=== PATIENT | female | born 1960 | race Caucasian/White ===

== ENCOUNTER → 2016-05-03 | Outpatient (CLI) | payer BC ==
[~2016-05-03] MED LIST: CEPH500C2 PO; ZLF/50 PO
== END | disposition home or self-care (01) ==
LOC: C.PAPS 11:45
PROVIDERS: ATTEND Obstetrics & Gynecology
DX: Z01.419 Encounter for gynecological examination (general) (routine) without abnormal findings (principal)

== ENCOUNTER 2016-08-12 19:31 | Emergency (ER) | payer BC ==
[~2016-08-12] VITALS: Ht 162.6 cm; Wt 77.7 kg
[2016-08-12 19:47] VITALS: TEMP 37.2; Ht 162.6 cm; Wt 77.7 kg
[2016-08-12 20:28] LABS: BASO % 0.2 %; BASO ABS # 0.01 K/uL (0-0.2); COMPLETE YES; EOS % 0.3 %; HEMATOCRIT 42.5 % (37-47); IG% 0.2 %; LYMPH % 19.8 %; LYMPH ABS # 1.31 K/uL (1.2-3.4); MEAN CELL VOLUME 92.4 fL (80-100); MEAN CORPUSCULAR HEMOGLOBIN 30.2 pg (25-34); MEAN CORPUSCULAR HGB CONC 32.7 g/dl (32-36); MEAN PLATELET VOLUME 9.5 fL (7.4-10.4); MONO % 12.1 %; NEUT % 67.4 %; PLATELET COUNT 196 K/uL (130-400); WHITE BLOOD COUNT 6.63 K/uL (4.8-10.8)
[2016-08-12] MEDS ORDERED: ONDANSETRON INJ 2 MG/ML 2 ML VIAL IV STA (20:34)
[2016-08-12 20:35] LABS: BUN/CREATININE RATIO 11.4 (10-20); CALCIUM 8.9 mg/dl (8.5-10.1); CREATININE 1.1 mg/dl (0.60-1.20); POTASSIUM 3.2 mmol/L (3.5-5.1)
[2016-08-12] MEDS ORDERED: ZLF/50 PO (20:37)
[2016-08-12] MEDS ORDERED: CEFTRIAXONE SOD INJ 1 GM ADDVIAL IV STA (20:50)
[2016-08-12] MEDS ORDERED: ACETAMINOPHEN 500 MG TAB PO STA (21:44)
--- NOTE | 2016-08-12 21:46 | DIAGNOSTIC IMAGING REPORT ---
LEFT LOWER EXTREMITY VENOUS DOPPLER CLINICAL HISTORY: Left popliteal lesion. Erythema and tenderness of left popliteal fossa. COMPARISON STUDY: No previous studies for comparison. TECHNIQUE: Sonography of the deep venous system of the left lower extremity was performed. Compression and augmentation were evaluated. FINDINGS: The left common femoral, superficial femoral and popliteal veins were compressible. Augmentation was normal. Flow was shown within the deep calf vessels. No fluid collection, mass or other sonographic abnormality was identified within the left popliteal fossa. IMPRESSION: 1. No evidence of deep venous thrombus within the left lower extremity. 2. No sonographic abnormality within the left popliteal fossa. Electronically signed by: Miguel Plunkett M.D. 08/12/2016 9:45 PM Dictated Date/Time: 08/12/2016 9:44 PM
--- NOTE | 2016-08-12 21:47 | EMERGENCY ROOM VISIT NOTE ---
History First contact with patient: 20:04 Chief Complaint: ILLNESS Stated Complaint: [id number]-OPEN WOUND ON BACK OF KNEE History of Present Illness The patient is a 55 year old female who presents to the Emergency Room with complaints of left leg pain. The patient first noticed some redness and swelling over the left popliteal fossa on Friday and it continued to progress over the last 2 days. The patient also states that she documented a fever at home today and currently has a headache and nausea. The patient does not remember any trauma or irritation to the area or any other cause of an infection. She states she is also having pain and numbness over he left calf. She states she also has a history of chronic fatigue. Review of Systems See HPI for pertinent positives and negatives. A total of ten systems were reviewed and were otherwise negative. Past Medical/Surgical History Medical Problems: (1) Migraine Social History Smoking Status: Never Smoker Current/Historical Medications Scheduled Cephalexin Monohydrate (Keflex), 500 MG PO QID Sertraline HCl (Sertraline HCl), 50 MG PO DAILY Allergies Coded Allergies: No Known Allergies (Verified , 12/06/14) Physical Exam Vital Signs Date Time Temp Pulse Resp B/P (MAP) Pulse Ox O2 Delivery O2 Flow Rate FiO2 08/12/16 22:10 99 18 111/67 96 08/12/16 21:41 99 18 111/67 96 Room Air 08/12/16 19:47 37.2 91 20 110/58 97 Room Air Physical Exam GENERAL: Awake, alert, well-appearing, in no distress HENT: Normocephalic, atraumatic. EYES: Normal conjunctiva. Sclera non-icteric. NECK: Supple. No nuchal rigidity. RESPIRATORY: Clear to auscultation. CARDIAC: Regular rate, normal rhythm. Extremities warm and well perfused. Pulses equal. ABDOMEN: Soft, non-distended. No tenderness to palpation. RECTAL: Deferred. MUSCULOSKELETAL: Tenderness with flexion and extension of left knee. Full ROM. No tenderness with plantar flexion. Tenderness to palpation over the left calf. LOWER EXTREMITIES: Calves are equal size bilaterally and non-tender. No edema. No discoloration. NEURO: Normal sensorium. SKIN: Large area of erythema over the left popliteal area. Tender to palpation over the fold of the left popliteal fossa Medical Decision & Procedures Laboratory Results 08/12/16 20:05 Red Blood Count 4.60, Mean Corpuscular Volume 92.4, Mean Corpuscular Hemoglobin 30.2, Mean Corpuscular Hemoglobin Concent 32.7, Mean Platelet Volume 9.5, Neutrophils (%) (Auto) 67.4, Lymphocytes (%) (Auto) 19.8, Monocytes (%) (Auto) 12.1, Eosinophils (%) (Auto) 0.3, Basophils (%) (Auto) 0.2, Neutrophils # (Auto ) 4.48, Lymphocytes # (Auto) 1.31, Monocytes # (Auto) 0.80, Eosinophils # (Auto ) 0.02, Basophils # (Auto) 0.01 08/12/16 20:05 Test 08/12/16 20:05 08/12/16 20:11 White Blood Count 6.63 K/uL (4.8-10.8) Red Blood Count 4.60 M/uL (4.2-5.4) Hemoglobin 13.9 g/dL (12.0-16.0) Hematocrit 42.5 % (37-47) Mean Corpuscular Volume 92.4 fL (80-100) Mean Corpuscular Hemoglobin 30.2 pg (25-34) Mean Corpuscular Hemoglobin Concent 32.7 g/dl (32-36) Platelet Count 196 K/uL (130-400) Mean Platelet Volume 9.5 fL (7.4-10.4) Neutrophils (%) (Auto) 67.4 % Lymphocytes (%) (Auto) 19.8 % Monocytes (%) (Auto) 12.1 % Eosinophils (%) (Auto) 0.3 % Basophils (%) (Auto) 0.2 % Neutrophils # (Auto) 4.48 K/uL (1.4-6.5) Lymphocytes # (Auto) 1.31 K/uL (1.2-3.4) Monocytes # (Auto) 0.80 K/uL (0.11-0.59) Eosinophils # (Auto) 0.02 K/uL (0-0.5) Basophils # (Auto) 0.01 K/uL (0-0.2) RDW Standard Deviation 45.7 fL (36.4-46.3) RDW Coefficient of Variation 13.6 % (11.5-14.5) Immature Granulocyte % (Auto) 0.2 % Immature Granulocyte # (Auto) 0.01 K/uL (0.00-0.02) Anion Gap 8.0 mmol/L (3-11) Est Creatinine Clear Calc Drug Dose 59.0 ml/min Estimated GFR () 65.9 Estimated GFR (Non- 56.9 BUN/Creatinine Ratio 11.4 (10-20) Calcium Level 8.9 mg/dl (8.5-10.1) Lyme Disease IgG Antibody NEG (NEG) Lyme Disease IgM Antibody NEG (NEG) Bedside Lactic Acid Venous 0.90 mmol/L (0.90-1.70) Date/Time Source Procedure Growth Status 08/12/16 20:30 Blood Blood Culture - Final NO GROWTH Complete Medications Administered Medications (Trade) Dose Ordered Sig/Sindy Route Start Time Stop Time Status Last Admin Dose Admin Ondansetron HCl (Zofran Inj) 4 mg NOW STAT IV 08/12/16 20:34 08/12/16 20:35 DC 08/12/16 20:45 4 MG Ceftriaxone Sodium (Rocephin Inj) 1 gm NOW STAT IV 08/12/16 20:50 08/12/16 20:51 DC 08/12/16 21:39 1 GM Acetaminophen (Tylenol Tab) 1,000 mg NOW STAT PO 08/12/16 21:44 08/12/16 21:45 DC 08/12/16 21:50 1,000 MG Cephalexin Monohydrate (Keflex 500MG Home Pack) 1 homepack NOW ONCE PO 08/12/16 22:00 08/12/16 22:01 DC 08/12/16 22:00 1 HOMEPACK Medical Decision Patient is a 55 year old female that presents with erythema and swelling over the left popliteal fold and fever - CBC - BMP - 2 x Blood cultures - Zofran 4mg IV - Rocephin 1 gm - Tylenol 1 gm Impression Primary Impression: Cellulitis of left leg Patient is a 55 year old female that presents with a 2 day history of what appears to be right leg cellulitis - Rocephin 1gm IV in ED - 10 Day course of Keflex Departure Information Dispostion Home / Self-Care Condition GOOD Prescriptions Cephalexin Monohydrate (KEFLEX) 500 Mg Cap 500 MG PO QID for 9 Days, #36 CAP Prov: Bao Magana MD 08/12/16 Referrals Eduardo Grullon M.D. (PCP) Patient Instructions [facility]
[2016-08-12] MEDS ORDERED: CEPHALEXIN 500MG HOME PACK 1 EA BTL PO ONE (22:00)
[2016-08-12] MEDS ORDERED: CEPH500C2 PO ×2 (22:00→22:02)
[2016-08-12 22:10] VITALS: BP 111/67; PULSE 99; O2SAT 96
[2016-08-12 22:11] LABS: LYME DISEASE AB IGG NEG (NEG); LYME DISEASE AB IGM NEG (NEG)
--- NOTE | 2016-08-13 00:11 | EMERGENCY ROOM VISIT NOTE ---
History Report prepared by Cam: Gisselle Ricardo Under the Supervision of: Dr. Chavo Victoria D.O. First contact with patient: 20:04 Chief Complaint: ILLNESS Stated Complaint: [id number]-OPEN WOUND ON BACK OF KNEE History of Present Illness The patient is a 55 year old female who presents to the Emergency Room with complaints of constant pain on the back of her knee beginning 2 days ago. The patient states that there is a wound on the back of her leg that has been worsening over the last 2 days. She complains of a fever, headache, nausea, and wound redness. She notes that she has some calf numbness and tenderness. The patient denies any vomiting. The patient's showed me a picture of the wound when it initially started. It revealed just a central erythematous region with some mild surrounding erythema. Source of History: patient Onset: 2 days ago Position: knee Quality: other (wound) Timing: constant Associated Symptoms: + fevers, + headache, + nausea, + numbness, No vomiting Note: Pt complains of calf pain and wound redness. Review of Systems See HPI for pertinent positives & negatives. A total of 10 systems reviewed and were otherwise negative. Past Medical & Surgical Medical Problems: (1) Migraine Family History No pertinent family history stated. Social History Smoking Status: Never Smoker Marital Status: single Occupation Status: retired Current/Historical Medications Scheduled Cephalexin Monohydrate (Keflex), 500 MG PO QID Sertraline HCl (Sertraline HCl), 50 MG PO DAILY Allergies Coded Allergies: No Known Allergies (Verified , 12/06/14) Physical Exam Vital Signs Date Time Temp Pulse Resp B/P (MAP) Pulse Ox O2 Delivery O2 Flow Rate FiO2 08/12/16 22:10 99 18 111/67 96 08/12/16 21:41 99 18 111/67 96 Room Air 08/12/16 19:47 37.2 91 20 110/58 97 Room Air Physical Exam CONSTITUTIONAL/VITAL SIGNS: Reviewed / noted above. GENERAL: Non-toxic in appearance. INTEGUMENTARY: Warm, dry, and Riva. HEAD: Normocephalic. EYES: without scleral icterus or trauma. ENT/OROPHARYNX: clear and moist. LYMPHADENOPATHY/NECK: Is supple without lymphadenopathy or meningismus. RESPIRATORY: Lungs clear and equal. CARDIOVASCULAR: Regular rate and rhythm. GI/ABDOMEN: Soft and nontender. No organomegaly or pulsatile mass. No rebound or guarding. Normal bowel sounds. EXTREMITIES: Warm and well perfused. There is a area of erythema and ecchymosis in the left popliteal region with some mild swelling and tenderness. BACK: No CVA tenderness. NEUROLOGICAL: Intact without focal deficits. PSYCHIATRIC: normal affect. MUSCULOSKELETAL: Normally developed with good muscle tone. Medical Decision & Procedures ER Provider Diagnostic Interpretation: Radiology results as stated below per my review and radiologist interpretation: LEFT LOWER EXTREMITY VENOUS DOPPLER FINDINGS: The left common femoral, superficial femoral and popliteal veins were compressible. Augmentation was normal. Flow was shown within the deep calf vessels. No fluid collection, mass or other sonographic abnormality was identified within the left popliteal fossa. IMPRESSION: 1. No evidence of deep venous thrombus within the left lower extremity. 2. No sonographic abnormality within the left popliteal fossa. Electronically signed by: Miguel Plunkett M.D. 08/12/2016 9:45 PM Dictated Date/Time: 08/12/2016 9:44 PM Laboratory Results 08/12/16 20:05 Red Blood Count 4.60, Mean Corpuscular Volume 92.4, Mean Corpuscular Hemoglobin 30.2, Mean Corpuscular Hemoglobin Concent 32.7, Mean Platelet Volume 9.5, Neutrophils (%) (Auto) 67.4, Lymphocytes (%) (Auto) 19.8, Monocytes (%) (Auto) 12.1, Eosinophils (%) (Auto) 0.3, Basophils (%) (Auto) 0.2, Neutrophils # (Auto ) 4.48, Lymphocytes # (Auto) 1.31, Monocytes # (Auto) 0.80, Eosinophils # (Auto ) 0.02, Basophils # (Auto) 0.01 08/12/16 20:05 Test 08/12/16 20:05 08/12/16 20:11 White Blood Count 6.63 K/uL (4.8-10.8) Red Blood Count 4.60 M/uL (4.2-5.4) Hemoglobin 13.9 g/dL (12.0-16.0) Hematocrit 42.5 % (37-47) Mean Corpuscular Volume 92.4 fL (80-100) Mean Corpuscular Hemoglobin 30.2 pg (25-34) Mean Corpuscular Hemoglobin Concent 32.7 g/dl (32-36) Platelet Count 196 K/uL (130-400) Mean Platelet Volume 9.5 fL (7.4-10.4) Neutrophils (%) (Auto) 67.4 % Lymphocytes (%) (Auto) 19.8 % Monocytes (%) (Auto) 12.1 % Eosinophils (%) (Auto) 0.3 % Basophils (%) (Auto) 0.2 % Neutrophils # (Auto) 4.48 K/uL (1.4-6.5) Lymphocytes # (Auto) 1.31 K/uL (1.2-3.4) Monocytes # (Auto) 0.80 K/uL (0.11-0.59) Eosinophils # (Auto) 0.02 K/uL (0-0.5) Basophils # (Auto) 0.01 K/uL (0-0.2) RDW Standard Deviation 45.7 fL (36.4-46.3) RDW Coefficient of Variation 13.6 % (11.5-14.5) Immature Granulocyte % (Auto) 0.2 % Immature Granulocyte # (Auto) 0.01 K/uL (0.00-0.02) Anion Gap 8.0 mmol/L (3-11) Est Creatinine Clear Calc Drug Dose 59.0 ml/min Estimated GFR () 65.9 Estimated GFR (Non- 56.9 BUN/Creatinine Ratio 11.4 (10-20) Calcium Level 8.9 mg/dl (8.5-10.1) Lyme Disease IgG Antibody NEG (NEG) Lyme Disease IgM Antibody NEG (NEG) Bedside Lactic Acid Venous 0.90 mmol/L (0.90-1.70) Laboratory results as stated above per my review. Medications Administered Medications (Trade) Dose Ordered Sig/Sindy Route Start Time Stop Time Status Last Admin Dose Admin Ondansetron HCl (Zofran Inj) 4 mg NOW STAT IV 08/12/16 20:34 08/12/16 20:35 DC 08/12/16 20:45 4 MG Ceftriaxone Sodium (Rocephin Inj) 1 gm NOW STAT IV 08/12/16 20:50 08/12/16 20:51 DC 08/12/16 21:39 1 GM Acetaminophen (Tylenol Tab) 1,000 mg NOW STAT PO 08/12/16 21:44 08/12/16 21:45 DC 08/12/16 21:50 1,000 MG Cephalexin Monohydrate (Keflex 500MG Home Pack) 1 homepack NOW ONCE PO 08/12/16 22:00 08/12/16 22:01 DC 08/12/16 22:00 1 HOMEPACK ED Course 2003: Previous medical records were reviewed. The patient was evaluated in room C5. A complete history and physical examination was performed. 2033: Zofran Inj 4mg IV. 2049: Rocephin Inj 1gm IV. 2143: Tylenol Tab 100mg PO. 2199: Keflex 500mg Home Pack 1 homepack PO. 2215: On reevaluation, the patient is doing well. I discussed the results and findings with the patient. She verbalized agreement of the treatment plan. The patient was discharged home. Medical Decision Differential diagnosis: Etiologies such as cellulitis, abscess, MRSA infection, DVT, necrotizing fasciitis, dermatitis, drug eruption, as well as others were entertained.. Medication Reconciliation: I attest that I have personally reviewed the patient' s current medication list. Blood pressure Screening: Patient was found to have normal blood pressure on screening and does not require follow-up. Is a 55-year-old female who presents to the ED with a chief complaint of some erythema behind the left knee. His symptoms started several days ago with a small red area in the center of the popliteal region on the left that appear to be a small insect bite. She has developed some ecchymosis and increasing erythema. She came in for evaluation of this. She was seen in conjunction with the resident. The patient's blood work was unremarkable. An ultrasound did not show DVT. She was given IV antibiotics and discharged on oral antibiotics. She is felt to be stable for discharge. Impression Primary Impression: Cellulitis of left leg Scribe Attestation The scribe's documentation has been prepared under my direction and personally reviewed by me in its entirety. I confirm that the note above accurately reflects all work, treatment, procedures, and medical decision making performed by me. Departure Information Dispostion Home / Self-Care Prescriptions Cephalexin Monohydrate (KEFLEX) 500 Mg Cap 500 MG PO QID for 9 Days, #36 CAP Prov: Bao Magana MD 08/12/16 Referrals Eduardo Grullon M.D. (PCP) Forms HOME CARE DOCUMENTATION FORM, IMPORTANT VISIT INFORMATION, WORK / SCHOOL INSTRUCTIONS Patient Instructions My [facility] [employer] Additional Instructions - Follow up with Dr. Bao Magana on at [facility] - Take Keflex 1 Tab (500mg) every 6 hours (4 times every day) for the next 10 days - If the your fever persists, you have worsening headaches, your infection appears to be worsening, or any other concerning symptoms appear please return to the emergency department or be seen by a physician - Take extra strength Tylenol as needed for headache
== END 2016-08-12 22:10 | disposition home or self-care (01) ==
LOC: C.EDB 19:33 → C.EDC 22:10
DX: L03.116 Cellulitis of left lower limb (principal); G43.909 Migraine, unspecified, not intractable, without status migrainosus; Z79.899 Other long term (current) drug therapy

== ENCOUNTER → 2017-04-17 | Outpatient (CLI) | payer OTHER ==
--- NOTE | 2017-04-17 15:06 | MAMMOGRAPHY REPORT ---
BILATERAL DIGITAL SCREENING MAMMOGRAM TOMOSYNTHESIS WITH CAD: 04/17/2017 CLINICAL HISTORY: Routine screening. Patient has no complaints. TECHNIQUE: Breast tomosynthesis in addition to standard 2D mammography was performed. Current study was also evaluated with a Computer Aided Detection (CAD) system. COMPARISON: Comparison is made to exams dated: 12/26/2015 mammogram, 12/23/2014 mammogram, 4 mammogram, 06/21/2013 mammogram, 12/21/2012 mammogram, and 06/24/2012 ultrasound - [facility]. BREAST COMPOSITION: The tissue of both breasts is heterogeneously dense, which may obscure small mas ses. FINDINGS: No suspicious masses, calcifications, or areas of architectural distortion are noted in ei ther breast. There has been no significant interval change compared to prior exams. IMPRESSION: ACR BI-RADS CATEGORY 1: NEGATIVE There is no mammographic evidence of malignancy. A 1 year screening mammogram is recommended. The pa tient will receive written notification of the results. Approximately 10% of breast cancers are not detected with mammography. A negative mammographic report should not delay biopsy if a clinically suggestive mass is present. Daniela Trimble M.D. /:04/17/2017 14:54:03 Supervisor Extrusion: Laura Galloway, [facility] letter sent: Normal 1/2 BI-RADS Code: ACR BI-RADS Category 1: Negative
== END | disposition home or self-care (01) ==
LOC: C.MAMM 10:10
PROVIDERS: ATTEND Obstetrics & Gynecology
DX: Z12.31 Encounter for screening mammogram for malignant neoplasm of breast (principal)

== ENCOUNTER → 2017-05-27 | Outpatient (CLI) | payer OTHER | END | disposition home or self-care (01) | LOC: C.PAPS 13:20 | PROVIDERS: ATTEND Obstetrics & Gynecology | DX: Z12.4 Encounter for screening for malignant neoplasm of cervix (principal); Z11.51 Encounter for screening for human papillomavirus (HPV) ==

== ENCOUNTER → 2017-09-24 | Outpatient (CLI) | payer OTHER ==
--- NOTE | 2017-09-24 12:57 | DIAGNOSTIC IMAGING REPORT ---
LUMBAR SPINE 2 OR 3 VIEWS CLINICAL HISTORY: 56 years-old Female presenting with M25.17 low back pain for several months. TECHNIQUE: Frontal, lateral, and coned in lateral views of the lumbar spine were obtained. COMPARISON: None. FINDINGS: No scoliosis. Normal lumbar lordosis. Vertebral bodies demonstrate normal height and alignment. Mild intervertebral disc height loss at several levels. Mild anterior osteophytosis. No osseous neural foraminal narrowing. No compression deformity or subluxation. Moderate stool burden. IMPRESSION: No radiographic evidence of acute osseous injury or advanced degenerative change. Electronically signed by: Stephan Garcia M.D. 09/24/2017 12:55 PM Dictated Date/Time: 09/24/2017 12:52 PM
== END | disposition home or self-care (01) ==
LOC: C.RAD 11:42
PROVIDERS: ATTEND Family Medicine
DX: M54.17 Radiculopathy, lumbosacral region (principal)